=== PATIENT | female | born 1985 | race Caucasian/White ===

== ENCOUNTER 2019-07-13 21:23 | Emergency (ER) | payer SELFPAY ==
[~2019-07-13] VITALS: Ht 157.5 cm; Wt 100.0 kg
[2019-07-13] MEDS ORDERED: IBUPROFEN 600 MG TABLET PO ONE (23:45)
[2019-07-13 23:47] VITALS: BP 125/86
== END 2019-07-13 23:57 | disposition home or self-care (01) ==
LOC: EMS 21:24
DX: G56.02 Carpal tunnel syndrome, left upper limb (principal)